=== PATIENT | male | born 1935 | race Caucasian/White ===

== ENCOUNTER 2020-04-21 11:58 | Outpatient (CLI) | payer MEDICARE ==
--- NOTE | 2020-04-21 13:23 | RAD ---
PA AND LATERAL VIEWS CHEST: Date: 04/21/2020 HISTORY: Dyspnea. FINDINGS/IMPRESSION: There are no previous exams for comparison. The heart size is borderline. The aorta is tortuous. A left-sided pacemaker device is present. Diffus e interstitial thickening is seen in the lung marquez bilaterally, which is likely chronic. This, zamarripa kylah, cannot be said with certainty in the absence of comparison exams. No pneumothoraces, lobar conso lidation, or pleural effusions are seen. There are degenerative changes in the spine. POS: OFF
== END 2020-04-21 11:59 | disposition home or self-care (01) ==
LOC: BICRAD 11:58
PROVIDERS: ATTEND Internal Medicine Pulmonary Disease
DX: R06.00 Dyspnea, unspecified (principal); J98.4 Other disorders of lung; Z95.0 Presence of cardiac pacemaker
CPT/HCPCS: 71046

== ENCOUNTER 2021-04-13 13:48 | Inpatient (IN) | payer MEDICARE ==
[2021-04-13 16:14] LABS: SARS-CoV-2 NAA Rapid Test DETECTED (NotDetected)
[2021-04-13] MEDS ORDERED: Albuterol Sulfate 2.5 mg/3 ml Neb NEB PRN (17:05)
[2021-04-13] MEDS ORDERED: Senokot S 8.6-50 MG TAB PO PRN (17:05)
[2021-04-13 17:32] LABS: Lactic Acid 2.3 mmol/L (0.5-2.2)
[2021-04-13 17:56] LABS: Actual Bicarbonate (HCO3a) 19.3 mEq/L (22-28); Analyzer IN Cardio ER; Base Excess (BEa) -4.9 mEq/L (-2.0 to +3.0); CO2 Tension 33.5 mmHg (35.0-45.0); Calcium, Ionized (arterial) 1.07 mmol/L (1.12-1.30); Carboxyhemoglobin (COHb) 0.6 gm% (0.0-3.0); Hemoglobin (Hb) 13.6 g/dL (14.0-18.0); O2 Tension (PaO2), arterial 95.7 mmHg (> 60.0); Potassium - ABG Lab 4.18 mmol/L (3.70-5.30); pH, Arterial 7.38 (7.35-7.45)
[2021-04-13 17:58] LABS: Puncture Site RBA
[2021-04-13] MEDS ORDERED: predniSONE 20 MG TAB PO SCH (18:00)
[2021-04-13] MEDS ORDERED: Ipratropium Oral Inhaler INH SCH (19:00)
[2021-04-13] MEDS ORDERED: Mometasone 100 MCG/Formoterol 5 MCG 120 PUFF INHALER INH SCH (21:00)
[2021-04-13] MEDS ORDERED: Rivaroxaban 15 MG TAB PO SCH (21:00)
[2021-04-13] MEDS: Gabapentin 100 MG CAP PO SCH ×2 (22:00→22:07)
[2021-04-13] MEDS: traZODone HCl 50 MG TAB PO SCH (22:01)
[2021-04-13] MEDS: Albuterol 200 PUFF (6.7GM INHALER) INH SCH (22:01)
[2021-04-13] MEDS: Benzonatate 100 MG CAP PO PRN (22:01)
[2021-04-14 04:02] LABS: #Lymphocytes 0.8 thou/uL (1.20-3.40); #Monocytes 0.7 thou/uL (0.11-0.59); %Eosinophils 0.1 % (0.0-10.0); %Lymphocytes 9.8 % (21.0-51.0); %Monocytes 7.6 % (0.0-10.0); %Neutrophils 82.5 % (42.0-75.0); Hemoglobin 12.4 g/dL (14.0-18.0); Mean Corpuscular HGB CONC 33.6 g/dL (32.0-36.0); Mean Corpuscular Hemoglobin 32.4 pg (27.0-31.0); Mean Corpuscular Volume 96.5 fL (78.0-98.0); Mean Platelet Volume 8.8 fL (7.4-10.4); Platelet Count 92 thou/uL (130-400); Platelet Morphology Comment Appears Decreased; Red Blood Cell (RBC) Count 3.84 mill/uL (4.70-6.10); White Blood Cell (WBC) Count 8.5 thou/uL (4.8-10.8)
[2021-04-14 04:04] LABS: ALT (SGPT) 26 U/L (8-55); AST (SGOT) 51 U/L (5-34); Alkaline Phosphatase 76 U/L (40-110); Anion Gap 11 mmol/L (10-20); BUN (Urea Nitrogen) 32 mg/dL (8.4-25.7); Bilirubin, Total 0.5 mg/dL (0.2-1.2); Calc. Creatinine Clearance 54 mL/min (70-130); Carbon Dioxide 24 mmol/L (23-31); Chloride 104 mmol/L (98-107); Globulin 2.9 g/dL (2.4-3.5); Glucose 131 mg/dL (83-110); Potassium 4.1 mmol/L (3.5-5.1); Protein, Total 5.9 g/dL (5.8-8.1); Sodium 135 mmol/L (136-145)
[2021-04-14] MEDS: Levothyroxine Sodium 88 MCG TAB PO SCH (05:15)
[2021-04-14] MEDS: Albuterol 200 PUFF (6.7GM INHALER) INH SCH ×6 (06:42→21:11)
[2021-04-14] MEDS ORDERED: predniSONE 20 MG TAB PO SCH (08:00)
[2021-04-14] MEDS ORDERED: Enoxaparin Sodium 30 MG/0.3 ML SYRINGE SC SCH (09:00)
[2021-04-14] MEDS ORDERED: Furosemide 40 MG TAB PO SCH (09:00)
[2021-04-14] MEDS ORDERED: Non-Formulary Item 1 EACH (Fluticasone Propionate [Flovent Diskus] 50 MCG Blst.W.Dev) INH SCH (09:00)
[2021-04-14] MEDS ORDERED: Ipratropium Oral Inhaler INH PRN (09:34)
[2021-04-14] MEDS ORDERED: Rivaroxaban 15 MG TAB PO SCH (09:43)
[2021-04-14] MEDS: Dexamethasone 10 MG/ML VIAL SLOW IVP SCH ×2 (10:42→20:44)
[2021-04-14] MEDS: Azithromycin 250 MG TAB PO SCH (10:43)
[2021-04-14] MEDS: Metoprolol Tartrate 25 MG TAB PO SCH ×2 (10:43→20:45)
[2021-04-14] MEDS: Potassium Bicarbonate/Cit Ac 20 MEQ TAB PO SCH (10:44)
[2021-04-14] MEDS: Furosemide 20 MG/2 ML VIAL SLOW IVP SCH ×2 (10:44→20:44)
[2021-04-14] MEDS: Gabapentin 100 MG CAP PO SCH (12:18)
[2021-04-14] MEDS: Mometasone 200 MCG/PUFF (1 INHALER) INH SCH ×3 (16:05→17:54)
[2021-04-14] MEDS: Mometasone 100 MCG/Formoterol 5 MCG 120 PUFF INHALER INH SCH ×2 (16:05→17:46)
[2021-04-14] MEDS: cefTRIAXone\\ROCEPHIN 1 GM in Sodium Chloride 0.9% 100 ML IVPB SCH (16:35)
[2021-04-14] MEDS: Rivaroxaban 10 MG TAB PO SCH (20:45)
[2021-04-14] MEDS: traZODone HCl 50 MG TAB PO SCH (20:46)
[2021-04-14] MEDS ORDERED: Metoprolol Tartrate 25 MG TAB PO SCH (21:45)
[2021-04-15] MEDS: Levothyroxine Sodium 88 MCG TAB PO SCH (05:58)
[2021-04-15] MEDS: Albuterol 200 PUFF (6.7GM INHALER) INH SCH ×6 (05:59→22:00)
[2021-04-15] MEDS ORDERED: Metoprolol Tartrate 25 MG TAB PO SCH (07:15)
[2021-04-15 08:44] LABS: Hemoglobin 14.7 g/dL (14.0-18.0); Mean Corpuscular HGB CONC 30.7 g/dL (32.0-36.0); Mean Corpuscular Hemoglobin 30.8 pg (27.0-31.0); Mean Platelet Volume 9.7 fL (7.4-10.4); Platelet Count 127 thou/uL (130-400); RBC Distribution Width 14.4 % (11.5-14.5); Red Blood Cell (RBC) Count 4.77 mill/uL (4.70-6.10); White Blood Cell (WBC) Count 8.9 thou/uL (4.8-10.8)
[2021-04-15 08:46] LABS: ALT (SGPT) 72 U/L (8-55); AST (SGOT) 132 U/L (5-34); Albumin 3.3 g/dL (3.4-4.8); Alkaline Phosphatase 113 U/L (40-110); Anion Gap 16 mmol/L (10-20); BUN (Urea Nitrogen) 39 mg/dL (8.4-25.7); Bilirubin, Total 0.5 mg/dL (0.2-1.2); Calc. Creatinine Clearance 64 mL/min (70-130); Calcium 8.4 mg/dL (7.8-10.44); Carbon Dioxide 18 mmol/L (23-31); Chloride 103 mmol/L (98-107); Globulin 3.7 g/dL (2.4-3.5); Glucose 126 mg/dL (83-110); Potassium 4.6 mmol/L (3.5-5.1); Sodium 132 mmol/L (136-145)
[2021-04-15] MEDS: Mometasone 200 MCG/PUFF (1 INHALER) INH SCH ×2 (09:02→18:18)
[2021-04-15] MEDS: Mometasone 100 MCG/Formoterol 5 MCG 120 PUFF INHALER INH SCH ×2 (09:03→18:18)
[2021-04-15 09:04] LABS: Magnesium 2.3 mg/dL (1.6-2.6); Phosphorus 2.8 mg/dL (2.3-4.7)
[2021-04-15] MEDS: Dexamethasone 10 MG/ML VIAL SLOW IVP SCH ×2 (09:05→21:38)
[2021-04-15] MEDS: Azithromycin 250 MG TAB PO SCH (09:05)
[2021-04-15] MEDS: Furosemide 20 MG/2 ML VIAL SLOW IVP SCH ×2 (09:05→21:38)
[2021-04-15] MEDS: Potassium Bicarbonate/Cit Ac 20 MEQ TAB PO SCH (09:06)
[2021-04-15] MEDS: Metoprolol Tartrate 25 MG TAB PO SCH ×3 (09:27→21:37)
[2021-04-15] MEDS ORDERED: Iopamidol-370 76% 500 ML 1 ML ONE (09:28)
[2021-04-15 10:42] LABS: Band 28 % (5-11); Lymphocytes 13 % (21-51); MDiff Complete? YES; Monocytes 9 % (0-10); Neutrophil 50 % (42-75); Platelet Morphology Comment Appears Decreased; Polychromasia SLIGHT = 2-3 cells (100X) (0-2/hpf)
[2021-04-15] MEDS: cefTRIAXone\\ROCEPHIN 1 GM in Sodium Chloride 0.9% 100 ML IVPB SCH (14:40)
[2021-04-15] MEDS: Rivaroxaban 10 MG TAB PO SCH (21:37)
[2021-04-15] MEDS: traZODone HCl 50 MG TAB PO SCH (21:38)
[2021-04-16] MEDS: Albuterol 200 PUFF (6.7GM INHALER) INH SCH ×6 (02:30→21:49)
[2021-04-16 04:00] LABS: #Lymphocytes 0.6 thou/uL (1.20-3.40); #Monocytes 0.3 thou/uL (0.11-0.59); #Neutrophils 4.9 thou/uL (1.40-6.50); %Monocytes 5.7 % (0.0-10.0); %Neutrophils 84.2 % (42.0-75.0); Hemoglobin 13.9 g/dL (14.0-18.0); Mean Corpuscular HGB CONC 31.4 g/dL (32.0-36.0); Mean Corpuscular Hemoglobin 30.5 pg (27.0-31.0); Mean Platelet Volume 8.8 fL (7.4-10.4); Platelet Count 124 thou/uL (130-400); RBC Distribution Width 13.9 % (11.5-14.5); Red Blood Cell (RBC) Count 4.54 mill/uL (4.70-6.10); White Blood Cell (WBC) Count 5.8 thou/uL (4.8-10.8)
[2021-04-16 04:28] LABS: ALT (SGPT) 70 U/L (8-55); AST (SGOT) 87 U/L (5-34); Albumin 3.2 g/dL (3.4-4.8); Alkaline Phosphatase 121 U/L (40-110); Anion Gap 12 mmol/L (10-20); BUN (Urea Nitrogen) 40 mg/dL (8.4-25.7); Bilirubin, Total 0.4 mg/dL (0.2-1.2); Calc. Creatinine Clearance 68 mL/min (70-130); Calcium 8.2 mg/dL (7.8-10.44); Carbon Dioxide 28 mmol/L (23-31); Chloride 99 mmol/L (98-107); Globulin 3.2 g/dL (2.4-3.5); Glucose 131 mg/dL (83-110); Potassium 3.9 mmol/L (3.5-5.1); Protein, Total 6.4 g/dL (5.8-8.1); Sodium 135 mmol/L (136-145)
[2021-04-16] MEDS: Levothyroxine Sodium 88 MCG TAB PO SCH (06:23)
[2021-04-16] MEDS ORDERED: Calcium Carbonate 500 MG ChewTAB PO PRN (09:34)
[2021-04-16] MEDS: Dexamethasone 10 MG/ML VIAL SLOW IVP SCH ×2 (10:17→20:22)
[2021-04-16] MEDS: Furosemide 20 MG/2 ML VIAL SLOW IVP SCH ×2 (10:17→20:22)
[2021-04-16] MEDS: Acetaminophen 325 MG TAB PO PRN ×3 (10:17→21:41)
[2021-04-16] MEDS: Benzonatate 100 MG CAP PO PRN (10:18)
[2021-04-16] MEDS: Azithromycin 250 MG TAB PO SCH (10:18)
[2021-04-16] MEDS: Metoprolol Tartrate 25 MG TAB PO SCH ×2 (10:18→20:22)
[2021-04-16] MEDS: Potassium Bicarbonate/Cit Ac 20 MEQ TAB PO SCH (10:18)
[2021-04-16] MEDS: Mometasone 100 MCG/Formoterol 5 MCG 120 PUFF INHALER INH SCH ×2 (10:32→18:48)
[2021-04-16] MEDS: Mometasone 200 MCG/PUFF (1 INHALER) INH SCH ×2 (10:33→18:49)
[2021-04-16] MEDS: guaiFENesin/DM ER PO SCH ×2 (10:43→20:21)
[2021-04-16] MEDS: Pantoprazole 40 MG VIAL IVP SCH (10:44)
[2021-04-16] MEDS: cefTRIAXone\\ROCEPHIN 1 GM in Sodium Chloride 0.9% 100 ML IVPB SCH (16:49)
[2021-04-16] MEDS: Rivaroxaban 10 MG TAB PO SCH (20:22)
[2021-04-16] MEDS: traZODone HCl 50 MG TAB PO SCH (20:22)
[2021-04-17] MEDS: Albuterol 200 PUFF (6.7GM INHALER) INH SCH ×6 (03:00→23:25)
[2021-04-17 03:53] LABS: #Lymphocytes 0.6 thou/uL (1.20-3.40); #Monocytes 0.4 thou/uL (0.11-0.59); #Neutrophils 5.5 thou/uL (1.40-6.50); %Basophils 0.2 % (0.0-1.0); %Eosinophils 0.1 % (0.0-10.0); %Lymphocytes 9.8 % (21.0-51.0); %Monocytes 5.7 % (0.0-10.0); %Neutrophils 84.2 % (42.0-75.0); Hemoglobin 13.4 g/dL (14.0-18.0); Mean Corpuscular HGB CONC 31.6 g/dL (32.0-36.0); Mean Corpuscular Hemoglobin 31.1 pg (27.0-31.0); Mean Corpuscular Volume 98.5 fL (78.0-98.0); Mean Platelet Volume 9.2 fL (7.4-10.4); Platelet Count 117 thou/uL (130-400); White Blood Cell (WBC) Count 6.5 thou/uL (4.8-10.8)
[2021-04-17 04:15] LABS: ALT (SGPT) 71 U/L (8-55); AST (SGOT) 67 U/L (5-34); Alkaline Phosphatase 113 U/L (40-110); Anion Gap 13 mmol/L (10-20); BUN (Urea Nitrogen) 32 mg/dL (8.4-25.7); Bilirubin, Total 0.4 mg/dL (0.2-1.2); Calc. Creatinine Clearance 73 mL/min (70-130); Calcium 7.9 mg/dL (7.8-10.44); Carbon Dioxide 28 mmol/L (23-31); Chloride 100 mmol/L (98-107); Glucose 136 mg/dL (83-110); Potassium 3.5 mmol/L (3.5-5.1); Sodium 137 mmol/L (136-145)
[2021-04-17] MEDS: Mometasone 100 MCG/Formoterol 5 MCG 120 PUFF INHALER INH SCH ×2 (06:03→18:11)
[2021-04-17] MEDS: Mometasone 200 MCG/PUFF (1 INHALER) INH SCH ×2 (06:04→18:12)
[2021-04-17] MEDS: Levothyroxine Sodium 88 MCG TAB PO SCH (06:05)
[2021-04-17] MEDS: Furosemide 20 MG/2 ML VIAL SLOW IVP SCH ×2 (09:47→20:36)
[2021-04-17] MEDS: Potassium Bicarbonate/Cit Ac 20 MEQ TAB PO SCH (09:47)
[2021-04-17] MEDS: Dexamethasone 10 MG/ML VIAL SLOW IVP SCH ×2 (09:47→20:36)
[2021-04-17] MEDS: Azithromycin 250 MG TAB PO SCH (09:48)
[2021-04-17] MEDS: Benzonatate 100 MG CAP PO PRN (09:48)
[2021-04-17] MEDS: Metoprolol Tartrate 25 MG TAB PO SCH ×2 (09:48→20:36)
[2021-04-17] MEDS: guaiFENesin/DM ER PO SCH ×2 (09:48→20:36)
[2021-04-17] MEDS: Pantoprazole 40 MG VIAL IVP SCH (09:49)
[2021-04-17] MEDS: cefTRIAXone\\ROCEPHIN 1 GM in Sodium Chloride 0.9% 100 ML IVPB SCH (14:54)
[2021-04-17] MEDS: traZODone HCl 50 MG TAB PO SCH (20:36)
[2021-04-17] MEDS: Rivaroxaban 10 MG TAB PO SCH (20:36)
[2021-04-18] MEDS: Albuterol 200 PUFF (6.7GM INHALER) INH SCH ×6 (03:25→22:54)
[2021-04-18 04:28] LABS: ALT (SGPT) 95 U/L (8-55); AST (SGOT) 68 U/L (5-34); Albumin 3.2 g/dL (3.4-4.8); Alkaline Phosphatase 112 U/L (40-110); Anion Gap 14 mmol/L (10-20); BUN (Urea Nitrogen) 35 mg/dL (8.4-25.7); Bilirubin, Total 0.5 mg/dL (0.2-1.2); Calc. Creatinine Clearance 69 mL/min (70-130); Carbon Dioxide 30 mmol/L (23-31); Chloride 99 mmol/L (98-107); Globulin 3.1 g/dL (2.4-3.5); Glucose 153 mg/dL (83-110); Potassium 3.7 mmol/L (3.5-5.1); Protein, Total 6.3 g/dL (5.8-8.1); Sodium 139 mmol/L (136-145)
[2021-04-18 06:16] LABS: Hemoglobin 15.2 g/dL (14.0-18.0); Mean Corpuscular HGB CONC 31.7 g/dL (32.0-36.0); Mean Corpuscular Hemoglobin 30.2 pg (27.0-31.0); Mean Corpuscular Volume 95.4 fL (78.0-98.0); Platelet Count 142 thou/uL (130-400); RBC Distribution Width 14.1 % (11.5-14.5); Red Blood Cell (RBC) Count 5.03 mill/uL (4.70-6.10); White Blood Cell (WBC) Count 7.7 thou/uL (4.8-10.8)
[2021-04-18] MEDS: Levothyroxine Sodium 88 MCG TAB PO SCH (06:31)
[2021-04-18] MEDS: Mometasone 100 MCG/Formoterol 5 MCG 120 PUFF INHALER INH SCH ×2 (06:33→18:57)
[2021-04-18 06:43] LABS: Band 12 % (5-11); Lymphocytes 12 % (21-51); MDiff Complete? YES; Monocytes 6 % (0-10); Neutrophil 70 % (42-75)
[2021-04-18] MEDS: Mometasone 200 MCG/PUFF (1 INHALER) INH SCH ×2 (06:58→18:57)
[2021-04-18] MEDS: Metoprolol Tartrate 25 MG TAB PO SCH ×2 (08:26→20:54)
[2021-04-18] MEDS: Dexamethasone 10 MG/ML VIAL SLOW IVP SCH (08:26)
[2021-04-18] MEDS: Pantoprazole 40 MG VIAL IVP SCH (08:26)
[2021-04-18] MEDS: guaiFENesin/DM ER PO SCH ×2 (08:26→20:54)
[2021-04-18] MEDS: Furosemide 20 MG/2 ML VIAL SLOW IVP SCH ×2 (08:26→20:54)
[2021-04-18] MEDS: Potassium Bicarbonate/Cit Ac 20 MEQ TAB PO SCH (08:27)
[2021-04-18 12:14] LABS: Cardiac Risk 3.2 (Less than 4.5)
[2021-04-18 12:34] LABS: HBCM Index 0.07 S/CO (0-0.79); HBSAg Index 0.24 S/CO (0-0.99); Hep A IgM AB Non-Reactive (NonReactive); Hep A IgM S/CO 0.09 S/CO (0-0.79); Hep B Surf Ag Non-Reactive S/CO (NonReactive); Hep C IgG Ab Non-Reactive (NonReactive); Hep C Index 0.17 S/CO (0-0.79); Hepatitis B Core IgM Abs Non-Reactive (NonReactive)
[2021-04-18] MEDS: cefTRIAXone\\ROCEPHIN 1 GM in Sodium Chloride 0.9% 100 ML IVPB SCH (15:40)
[2021-04-18] MEDS: Rivaroxaban 10 MG TAB PO SCH (20:54)
[2021-04-18] MEDS: traZODone HCl 50 MG TAB PO SCH (20:54)
[2021-04-19] MEDS: Albuterol 200 PUFF (6.7GM INHALER) INH SCH ×6 (03:02→23:14)
[2021-04-19 05:58] LABS: ALT (SGPT) 83 U/L (8-55); AST (SGOT) 47 U/L (5-34); Albumin 3.3 g/dL (3.4-4.8); Alkaline Phosphatase 114 U/L (40-110); Anion Gap 16 mmol/L (10-20); BUN (Urea Nitrogen) 36 mg/dL (8.4-25.7); Bilirubin, Total 0.7 mg/dL (0.2-1.2); Calc. Creatinine Clearance 73 mL/min (70-130); Calcium 7.7 mg/dL (7.8-10.44); Carbon Dioxide 26 mmol/L (23-31); Chloride 97 mmol/L (98-107); Glucose 123 mg/dL (83-110); Potassium 3.8 mmol/L (3.5-5.1); Protein, Total 6.3 g/dL (5.8-8.1); Sodium 135 mmol/L (136-145)
[2021-04-19 05:59] LABS: Hemoglobin 14.8 g/dL (14.0-18.0); Mean Corpuscular HGB CONC 31.7 g/dL (32.0-36.0); Mean Corpuscular Hemoglobin 29.9 pg (27.0-31.0); Mean Corpuscular Volume 94.3 fL (78.0-98.0); Mean Platelet Volume 8.7 fL (7.4-10.4); Platelet Count 158 thou/uL (130-400); RBC Distribution Width 13.9 % (11.5-14.5); Red Blood Cell (RBC) Count 4.93 mill/uL (4.70-6.10); White Blood Cell (WBC) Count 8.2 thou/uL (4.8-10.8)
[2021-04-19 06:17] LABS: Band 10 % (5-11); Lymphocytes 2 % (21-51); MDiff Complete? YES; Monocytes 7 % (0-10); Myelocyte 2 % (0-0); Neutrophil 79 % (42-75)
[2021-04-19] MEDS: Levothyroxine Sodium 88 MCG TAB PO SCH (06:20)
[2021-04-19] MEDS: Mometasone 200 MCG/PUFF (1 INHALER) INH SCH ×2 (06:22→17:46)
[2021-04-19] MEDS: Mometasone 100 MCG/Formoterol 5 MCG 120 PUFF INHALER INH SCH ×2 (06:22→17:46)
[2021-04-19] MEDS: Dexamethasone 10 MG/ML VIAL SLOW IVP SCH (09:00)
[2021-04-19] MEDS: Metoprolol Tartrate 25 MG TAB PO SCH ×2 (09:00→19:59)
[2021-04-19] MEDS: Furosemide 20 MG/2 ML VIAL SLOW IVP SCH ×2 (09:00→19:59)
[2021-04-19] MEDS: Potassium Bicarbonate/Cit Ac 20 MEQ TAB PO SCH (09:01)
[2021-04-19] MEDS: guaiFENesin/DM ER PO SCH ×2 (09:01→19:59)
[2021-04-19] MEDS: Rivaroxaban 10 MG TAB PO SCH (19:59)
[2021-04-19] MEDS: traZODone HCl 50 MG TAB PO SCH (19:59)
[2021-04-20] MEDS: Albuterol 200 PUFF (6.7GM INHALER) INH SCH ×6 (02:58→22:52)
[2021-04-20 05:42] LABS: ALT (SGPT) 73 U/L (8-55); AST (SGOT) 38 U/L (5-34); Albumin 3.3 g/dL (3.4-4.8); Alkaline Phosphatase 115 U/L (40-110); Anion Gap 15 mmol/L (10-20); BUN (Urea Nitrogen) 32 mg/dL (8.4-25.7); Bilirubin, Total 0.9 mg/dL (0.2-1.2); Calc. Creatinine Clearance 72 mL/min (70-130); Calcium 8.1 mg/dL (7.8-10.44); Carbon Dioxide 30 mmol/L (23-31); Chloride 96 mmol/L (98-107); Globulin 3.2 g/dL (2.4-3.5); Glucose 105 mg/dL (83-110); Potassium 4.2 mmol/L (3.5-5.1); Protein, Total 6.5 g/dL (5.8-8.1); Sodium 137 mmol/L (136-145)
[2021-04-20] MEDS: Levothyroxine Sodium 88 MCG TAB PO SCH (05:59)
[2021-04-20] MEDS: Mometasone 100 MCG/Formoterol 5 MCG 120 PUFF INHALER INH SCH ×2 (06:01→17:45)
[2021-04-20] MEDS: Mometasone 200 MCG/PUFF (1 INHALER) INH SCH ×2 (06:02→17:45)
[2021-04-20 07:01] LABS: Band 11 % (5-11); Hemoglobin 15.5 g/dL (14.0-18.0); Lymphocytes 11 % (21-51); MDiff Complete? YES; Mean Corpuscular HGB CONC 31.9 g/dL (32.0-36.0); Mean Corpuscular Hemoglobin 30.6 pg (27.0-31.0); Mean Corpuscular Volume 95.9 fL (78.0-98.0); Mean Platelet Volume 8.3 fL (7.4-10.4); Monocytes 2 % (0-10); Neutrophil 76 % (42-75); Platelet Count 192 thou/uL (130-400); Red Blood Cell (RBC) Count 5.07 mill/uL (4.70-6.10); White Blood Cell (WBC) Count 8.5 thou/uL (4.8-10.8)
[2021-04-20] MEDS: Potassium Bicarbonate/Cit Ac 20 MEQ TAB PO SCH (08:10)
[2021-04-20] MEDS: Dexamethasone 10 MG/ML VIAL SLOW IVP SCH (08:10)
[2021-04-20] MEDS: guaiFENesin/DM ER PO SCH ×2 (08:11→20:02)
[2021-04-20] MEDS: Metoprolol Tartrate 25 MG TAB PO SCH ×2 (08:11→20:02)
[2021-04-20] MEDS: Furosemide 20 MG/2 ML VIAL SLOW IVP SCH ×2 (08:11→20:01)
[2021-04-20] MEDS: Rivaroxaban 10 MG TAB PO SCH ×2 (20:01→20:02)
[2021-04-20] MEDS: traZODone HCl 50 MG TAB PO SCH (20:02)
[2021-04-21] MEDS: Albuterol 200 PUFF (6.7GM INHALER) INH SCH ×6 (02:30→23:07)
[2021-04-21] MEDS: Levothyroxine Sodium 88 MCG TAB PO SCH (05:23)
[2021-04-21] MEDS: Mometasone 200 MCG/PUFF (1 INHALER) INH SCH ×2 (05:24→18:13)
[2021-04-21] MEDS: Mometasone 100 MCG/Formoterol 5 MCG 120 PUFF INHALER INH SCH ×2 (05:24→18:13)
[2021-04-21 06:26] LABS: ALT (SGPT) 64 U/L (8-55); AST (SGOT) 39 U/L (5-34); Albumin 3.2 g/dL (3.4-4.8); Alkaline Phosphatase 126 U/L (40-110); Anion Gap 16 mmol/L (10-20); BUN (Urea Nitrogen) 35 mg/dL (8.4-25.7); Bilirubin, Total 0.9 mg/dL (0.2-1.2); Calc. Creatinine Clearance 73 mL/min (70-130); Calcium 8.4 mg/dL (7.8-10.44); Carbon Dioxide 30 mmol/L (23-31); Chloride 96 mmol/L (98-107); Globulin 3.6 g/dL (2.4-3.5); Glucose 106 mg/dL (83-110); Potassium 4.7 mmol/L (3.5-5.1); Protein, Total 6.8 g/dL (5.8-8.1); Sodium 137 mmol/L (136-145)
[2021-04-21 06:27] LABS: #Eosinphils 0.1 thou/uL (0.0-0.7); #Lymphocytes 0.6 thou/uL (1.20-3.40); #Monocytes 0.9 thou/uL (0.11-0.59); #Neutrophils 10.6 thou/uL (1.40-6.50); %Eosinophils 0.6 % (0.0-10.0); %Lymphocytes 5.2 % (21.0-51.0); %Neutrophils 87.3 % (42.0-75.0); Hemoglobin 15.7 g/dL (14.0-18.0); Mean Corpuscular HGB CONC 32.4 g/dL (32.0-36.0); Mean Corpuscular Hemoglobin 30.8 pg (27.0-31.0); Mean Corpuscular Volume 95.1 fL (78.0-98.0); Mean Platelet Volume 8.2 fL (7.4-10.4); Platelet Count 197 thou/uL (130-400); RBC Distribution Width 14.2 % (11.5-14.5); Red Blood Cell (RBC) Count 5.09 mill/uL (4.70-6.10); White Blood Cell (WBC) Count 12.2 thou/uL (4.8-10.8)
[2021-04-21] MEDS: Dexamethasone 10 MG/ML VIAL SLOW IVP SCH (07:32)
[2021-04-21] MEDS: Furosemide 20 MG/2 ML VIAL SLOW IVP SCH ×2 (07:32→20:15)
[2021-04-21] MEDS: Metoprolol Tartrate 25 MG TAB PO SCH (07:33)
[2021-04-21] MEDS: Potassium Bicarbonate/Cit Ac 20 MEQ TAB PO SCH (07:33)
[2021-04-21] MEDS: guaiFENesin/DM ER PO SCH ×2 (07:33→20:16)
[2021-04-21] MEDS ORDERED: Albuterol 200 PUFF (6.7GM INHALER) INH SCH (09:15)
[2021-04-21] MEDS ORDERED: Metoprolol Tartrate 25 MG TAB PO SCH ×2 (09:30)
[2021-04-21 10:53] VITALS: BMI 27.6
[2021-04-21] MEDS: Ipratropium Oral Inhaler INH SCH ×4 (14:12→20:17)
[2021-04-21] MEDS: Acetaminophen 325 MG TAB PO PRN (20:15)
[2021-04-21] MEDS: Rivaroxaban 10 MG TAB PO SCH (20:15)
[2021-04-21] MEDS: traZODone HCl 50 MG TAB PO SCH (20:16)
[2021-04-21] MEDS: Metoprolol Tartrate 50 MG TAB PO SCH (20:16)
[2021-04-22] MEDS: Albuterol 200 PUFF (6.7GM INHALER) INH SCH ×6 (03:32→23:50)
[2021-04-22] MEDS: Levothyroxine Sodium 88 MCG TAB PO SCH (05:16)
[2021-04-22] MEDS: Ipratropium Oral Inhaler INH SCH ×4 (05:22→17:58)
[2021-04-22] MEDS: Mometasone 200 MCG/PUFF (1 INHALER) INH SCH ×2 (05:23→18:00)
[2021-04-22] MEDS: Mometasone 100 MCG/Formoterol 5 MCG 120 PUFF INHALER INH SCH ×2 (05:24→17:59)
[2021-04-22 05:41] LABS: #Lymphocytes 0.5 thou/uL (1.20-3.40); #Monocytes 0.7 thou/uL (0.11-0.59); #Neutrophils 10.2 thou/uL (1.40-6.50); %Basophils 0.2 % (0.0-1.0); %Eosinophils 0.1 % (0.0-10.0); %Lymphocytes 3.9 % (21.0-51.0); %Monocytes 5.8 % (0.0-10.0); Hemoglobin 15.6 g/dL (14.0-18.0); Mean Corpuscular HGB CONC 31.7 g/dL (32.0-36.0); Mean Corpuscular Hemoglobin 30.1 pg (27.0-31.0); Platelet Count 181 thou/uL (130-400); Red Blood Cell (RBC) Count 5.19 mill/uL (4.70-6.10); White Blood Cell (WBC) Count 11.3 thou/uL (4.8-10.8)
[2021-04-22 06:21] LABS: ALT (SGPT) 55 U/L (8-55); AST (SGOT) 28 U/L (5-34); Albumin 2.9 g/dL (3.4-4.8); Alkaline Phosphatase 117 U/L (40-110); Anion Gap 18 mmol/L (10-20); BUN (Urea Nitrogen) 33 mg/dL (8.4-25.7); Bilirubin, Total 0.9 mg/dL (0.2-1.2); Calc. Creatinine Clearance 76 mL/min (70-130); Calcium 8.5 mg/dL (7.8-10.44); Carbon Dioxide 26 mmol/L (23-31); Chloride 96 mmol/L (98-107); Globulin 3.3 g/dL (2.4-3.5); Glucose 97 mg/dL (83-110); Potassium 4.2 mmol/L (3.5-5.1); Protein, Total 6.2 g/dL (5.8-8.1); Sodium 136 mmol/L (136-145)
[2021-04-22] MEDS: Metoprolol Tartrate 50 MG TAB PO SCH ×2 (08:20→20:42)
[2021-04-22] MEDS: Dexamethasone 10 MG/ML VIAL SLOW IVP SCH ×2 (08:20→20:41)
[2021-04-22] MEDS: Potassium Bicarbonate/Cit Ac 20 MEQ TAB PO SCH (08:20)
[2021-04-22] MEDS: Furosemide 20 MG/2 ML VIAL SLOW IVP SCH ×2 (08:20→20:41)
[2021-04-22] MEDS: guaiFENesin/DM ER PO SCH ×2 (08:20→20:41)
[2021-04-22] MEDS ORDERED: Furosemide 20 MG/2 ML VIAL SLOW IVP SCH (11:30)
[2021-04-22] MEDS ORDERED: Iopamidol-370 76% 500 ML 1 ML ONE (11:52)
[2021-04-22] MEDS: Rivaroxaban 10 MG TAB PO SCH (20:42)
[2021-04-22] MEDS: traZODone HCl 50 MG TAB PO SCH (20:42)
[2021-04-23] MEDS: Albuterol 200 PUFF (6.7GM INHALER) INH SCH ×6 (03:26→23:18)
[2021-04-23 04:49] LABS: #Basophils 0.1 thou/uL (0.0-0.2); #Lymphocytes 0.4 thou/uL (1.20-3.40); #Monocytes 0.4 thou/uL (0.11-0.59); #Neutrophils 8.6 thou/uL (1.40-6.50); %Eosinophils 0.2 % (0.0-10.0); %Lymphocytes 3.9 % (21.0-51.0); %Monocytes 3.7 % (0.0-10.0); %Neutrophils 91.3 % (42.0-75.0); Hemoglobin 14.7 g/dL (14.0-18.0); Mean Corpuscular HGB CONC 32.2 g/dL (32.0-36.0); Mean Corpuscular Hemoglobin 30.9 pg (27.0-31.0); Mean Corpuscular Volume 95.8 fL (78.0-98.0); Mean Platelet Volume 8.2 fL (7.4-10.4); Platelet Count 236 thou/uL (130-400); Red Blood Cell (RBC) Count 4.77 mill/uL (4.70-6.10); White Blood Cell (WBC) Count 9.5 thou/uL (4.8-10.8)
[2021-04-23 05:13] LABS: ALT (SGPT) 57 U/L (8-55); AST (SGOT) 32 U/L (5-34); Alkaline Phosphatase 158 U/L (40-110); Anion Gap 14 mmol/L (10-20); BUN (Urea Nitrogen) 35 mg/dL (8.4-25.7); Bilirubin, Total 0.9 mg/dL (0.2-1.2); Calc. Creatinine Clearance 66 mL/min (70-130); Calcium 8.8 mg/dL (7.8-10.44); Carbon Dioxide 32 mmol/L (23-31); Chloride 94 mmol/L (98-107); Globulin 3.4 g/dL (2.4-3.5); Glucose 121 mg/dL (83-110); Potassium 4.3 mmol/L (3.5-5.1); Protein, Total 6.4 g/dL (5.8-8.1); Sodium 136 mmol/L (136-145)
[2021-04-23] MEDS: Levothyroxine Sodium 88 MCG TAB PO SCH (06:06)
[2021-04-23] MEDS: Mometasone 100 MCG/Formoterol 5 MCG 120 PUFF INHALER INH SCH ×2 (06:10→18:16)
[2021-04-23] MEDS: Ipratropium Oral Inhaler INH SCH ×4 (06:11→18:16)
[2021-04-23] MEDS: Mometasone 200 MCG/PUFF (1 INHALER) INH SCH ×2 (06:13→18:15)
[2021-04-23] MEDS ORDERED: Furosemide 40 MG/4 ML VIAL SLOW IVP SCH (08:15)
[2021-04-23] MEDS: Furosemide 20 MG/2 ML VIAL SLOW IVP SCH ×2 (09:26→21:34)
[2021-04-23] MEDS: Potassium Bicarbonate/Cit Ac 20 MEQ TAB PO SCH (09:28)
[2021-04-23] MEDS: Metoprolol Tartrate 50 MG TAB PO SCH ×2 (09:28→21:35)
[2021-04-23] MEDS: Dexamethasone 10 MG/ML VIAL SLOW IVP SCH ×2 (09:28→21:34)
[2021-04-23] MEDS: guaiFENesin/DM ER PO SCH ×2 (11:33→21:34)
[2021-04-23 16:23] LABS: Base Excess 6.9 mEq/L (-2.0 to +3.0); Calcium, Ionized (venous) 1.05 mmol/L (1.16-1.32); Chloride (VBG) 94 mmol/L (98-106); Potassium (VBG) 4.27 mmol/L (3.70-5.30); Sodium 134.3 mmol/L (133-146)
[2021-04-23 16:25] LABS: Actual Bicarbonate (HCO3v) 31 mEq/L (22-28)
[2021-04-23] MEDS: traZODone HCl 50 MG TAB PO SCH (21:35)
[2021-04-23] MEDS: Rivaroxaban 10 MG TAB PO SCH (21:35)
[2021-04-24] MEDS ORDERED: Metoprolol Tartrate 5 MG/5 ML VIAL IVP SCH (01:00)
[2021-04-24] MEDS: Albuterol 200 PUFF (6.7GM INHALER) INH SCH ×6 (02:00→21:14)
[2021-04-24 05:38] LABS: #Lymphocytes 0.4 thou/uL (1.20-3.40); #Monocytes 0.7 thou/uL (0.11-0.59); #Neutrophils 12.9 thou/uL (1.40-6.50); %Basophils 0.3 % (0.0-1.0); %Eosinophils 0.1 % (0.0-10.0); %Lymphocytes 3.1 % (21.0-51.0); %Monocytes 4.6 % (0.0-10.0); Hemoglobin 16.1 g/dL (14.0-18.0); Mean Corpuscular HGB CONC 32.5 g/dL (32.0-36.0); Mean Corpuscular Hemoglobin 30.9 pg (27.0-31.0); Mean Corpuscular Volume 95.1 fL (78.0-98.0); Mean Platelet Volume 7.8 fL (7.4-10.4); Platelet Count 243 thou/uL (130-400); RBC Distribution Width 14.1 % (11.5-14.5); White Blood Cell (WBC) Count 14.1 thou/uL (4.8-10.8)
[2021-04-24 06:06] LABS: ALT (SGPT) 51 U/L (8-55); AST (SGOT) 33 U/L (5-34); Alkaline Phosphatase 142 U/L (40-110); Anion Gap 14 mmol/L (10-20); BUN (Urea Nitrogen) 37 mg/dL (8.4-25.7); Bilirubin, Total 1.4 mg/dL (0.2-1.2); Calc. Creatinine Clearance 60 mL/min (70-130); Carbon Dioxide 30 mmol/L (23-31); Chloride 94 mmol/L (98-107); Globulin 3.7 g/dL (2.4-3.5); Glucose 139 mg/dL (83-110); Potassium 4.6 mmol/L (3.5-5.1); Protein, Total 6.7 g/dL (5.8-8.1); Sodium 133 mmol/L (136-145)
[2021-04-24] MEDS: Levothyroxine Sodium 88 MCG TAB PO SCH (06:21)
[2021-04-24] MEDS: Metoprolol Tartrate 50 MG TAB PO SCH ×2 (06:21→20:28)
[2021-04-24] MEDS: Mometasone 200 MCG/PUFF (1 INHALER) INH SCH ×2 (06:28→18:29)
[2021-04-24] MEDS: Ipratropium Oral Inhaler INH SCH ×4 (06:29→18:31)
[2021-04-24] MEDS: Mometasone 100 MCG/Formoterol 5 MCG 120 PUFF INHALER INH SCH ×2 (06:29→18:30)
[2021-04-24] MEDS: Potassium Bicarbonate/Cit Ac 20 MEQ TAB PO SCH (08:38)
[2021-04-24] MEDS: guaiFENesin/DM ER PO SCH ×2 (08:40→20:27)
[2021-04-24] MEDS: Furosemide 20 MG/2 ML VIAL SLOW IVP SCH ×2 (08:41→20:26)
[2021-04-24] MEDS: Dexamethasone 10 MG/ML VIAL SLOW IVP SCH ×2 (08:41→20:26)
[2021-04-24] MEDS: Lactated Ringer's 1,000 ML IV SCH (11:19)
[2021-04-24] MEDS ORDERED: Polyethylene Glycol 3350 17 GM Packet PO PRN (13:10)
[2021-04-24] MEDS: Rivaroxaban 10 MG TAB PO SCH (20:26)
[2021-04-24] MEDS: traZODone HCl 50 MG TAB PO SCH (20:35)
[2021-04-25] MEDS: Lactated Ringer's 1,000 ML IV SCH (02:09)
[2021-04-25] MEDS: Albuterol 200 PUFF (6.7GM INHALER) INH SCH ×6 (02:12→21:42)
[2021-04-25 05:36] LABS: #Lymphocytes 0.4 thou/uL (1.20-3.40); #Monocytes 0.9 thou/uL (0.11-0.59); #Neutrophils 9.9 thou/uL (1.40-6.50); %Eosinophils 0.1 % (0.0-10.0); %Lymphocytes 3.3 % (21.0-51.0); %Monocytes 8.1 % (0.0-10.0); %Neutrophils 88.5 % (42.0-75.0); Hemoglobin 14.8 g/dL (14.0-18.0); Mean Corpuscular Hemoglobin 30.4 pg (27.0-31.0); Mean Corpuscular Volume 94.9 fL (78.0-98.0); Platelet Count 240 thou/uL (130-400); RBC Distribution Width 13.9 % (11.5-14.5); Red Blood Cell (RBC) Count 4.88 mill/uL (4.70-6.10); White Blood Cell (WBC) Count 11.2 thou/uL (4.8-10.8)
[2021-04-25 05:57] LABS: ALT (SGPT) 40 U/L (8-55); AST (SGOT) 26 U/L (5-34); Albumin 2.8 g/dL (3.4-4.8); Alkaline Phosphatase 124 U/L (40-110); Anion Gap 16 mmol/L (10-20); BUN (Urea Nitrogen) 43 mg/dL (8.4-25.7); Bilirubin, Total 1.1 mg/dL (0.2-1.2); Calc. Creatinine Clearance 66 mL/min (70-130); Calcium 8.6 mg/dL (7.8-10.44); Carbon Dioxide 28 mmol/L (23-31); Chloride 94 mmol/L (98-107); Globulin 3.5 g/dL (2.4-3.5); Glucose 125 mg/dL (83-110); Potassium 4.2 mmol/L (3.5-5.1); Protein, Total 6.3 g/dL (5.8-8.1); Sodium 134 mmol/L (136-145)
[2021-04-25] MEDS: Levothyroxine Sodium 88 MCG TAB PO SCH (06:03)
[2021-04-25] MEDS: Mometasone 200 MCG/PUFF (1 INHALER) INH SCH ×2 (06:06→18:28)
[2021-04-25] MEDS: Ipratropium Oral Inhaler INH SCH ×4 (06:07→18:29)
[2021-04-25] MEDS: Mometasone 100 MCG/Formoterol 5 MCG 120 PUFF INHALER INH SCH ×2 (06:07→18:28)
[2021-04-25] MEDS: Furosemide 20 MG/2 ML VIAL SLOW IVP SCH ×2 (08:49→21:41)
[2021-04-25] MEDS: Dexamethasone 10 MG/ML VIAL SLOW IVP SCH ×2 (08:49→21:40)
[2021-04-25] MEDS: guaiFENesin/DM ER PO SCH ×2 (08:49→21:40)
[2021-04-25] MEDS: Metoprolol Tartrate 50 MG TAB PO SCH (08:49)
[2021-04-25] MEDS: Potassium Bicarbonate/Cit Ac 20 MEQ TAB PO SCH (08:49)
[2021-04-25] MEDS: Rivaroxaban 10 MG TAB PO SCH (21:40)
[2021-04-25] MEDS: traZODone HCl 50 MG TAB PO SCH (21:40)
[2021-04-25] MEDS: Metoprolol Tartrate 100 MG TAB PO SCH (21:41)
[2021-04-26] MEDS: Albuterol 200 PUFF (6.7GM INHALER) INH SCH ×6 (02:41→22:00)
[2021-04-26 04:50] LABS: #Lymphocytes 0.4 thou/uL (1.20-3.40); #Monocytes 0.9 thou/uL (0.11-0.59); #Neutrophils 12.2 thou/uL (1.40-6.50); %Basophils 0.1 % (0.0-1.0); %Eosinophils 0.1 % (0.0-10.0); %Monocytes 6.7 % (0.0-10.0); %Neutrophils 90.1 % (42.0-75.0); Hemoglobin 15.1 g/dL (14.0-18.0); Mean Corpuscular Hemoglobin 30.5 pg (27.0-31.0); Mean Corpuscular Volume 95.2 fL (78.0-98.0); Mean Platelet Volume 8.1 fL (7.4-10.4); Platelet Count 250 thou/uL (130-400); Red Blood Cell (RBC) Count 4.96 mill/uL (4.70-6.10); White Blood Cell (WBC) Count 13.5 thou/uL (4.8-10.8)
[2021-04-26 05:14] LABS: Anion Gap 19 mmol/L (10-20); BUN (Urea Nitrogen) 52 mg/dL (8.4-25.7); Calc. Creatinine Clearance 60 mL/min (70-130); Carbon Dioxide 27 mmol/L (23-31); Chloride 92 mmol/L (98-107); Glucose 124 mg/dL (83-110); Potassium 4.6 mmol/L (3.5-5.1); Sodium 133 mmol/L (136-145)
[2021-04-26] MEDS: Ipratropium Oral Inhaler INH SCH ×4 (05:47→18:35)
[2021-04-26] MEDS: Mometasone 100 MCG/Formoterol 5 MCG 120 PUFF INHALER INH SCH ×2 (05:49→18:34)
[2021-04-26] MEDS: Mometasone 200 MCG/PUFF (1 INHALER) INH SCH ×2 (05:50→18:37)
[2021-04-26] MEDS: Levothyroxine Sodium 88 MCG TAB PO SCH (05:52)
[2021-04-26] MEDS: Potassium Bicarbonate/Cit Ac 20 MEQ TAB PO SCH (09:00)
[2021-04-26] MEDS: Dexamethasone 10 MG/ML VIAL SLOW IVP SCH ×2 (09:01→20:14)
[2021-04-26] MEDS: guaiFENesin/DM ER PO SCH ×2 (09:01→20:14)
[2021-04-26] MEDS: Furosemide 20 MG/2 ML VIAL SLOW IVP SCH ×2 (09:01→20:14)
[2021-04-26] MEDS: Metoprolol Tartrate 100 MG TAB PO SCH ×2 (09:01→20:14)
[2021-04-26] MEDS: Rivaroxaban 10 MG TAB PO SCH (20:15)
[2021-04-26] MEDS: traZODone HCl 50 MG TAB PO SCH (20:15)
[2021-04-27 00:35] VITALS: BP 123/70; TEMP 97.9
== END 2021-04-27 06:50 | disposition expired | DRG 871 ==
LOC: ERS 13:48 → ERHOLD 15:09 → IMCU/EMU 20:58 → 2SE 04-18 09:56 → 2SW 04-18 18:31
PROVIDERS: ADMIT Student in an Organized Health Care Education/Training Program; ATTEND Student in an Organized Health Care Education/Training Program
PROC: 8E0ZXY6 Isolation (ICD-10-PCS; principal; 2021-04-13)
DX: A41.89 Other specified sepsis (principal); J96.01 Acute respiratory failure with hypoxia; U07.1 COVID-19; J12.82 Pneumonia due to coronavirus disease 2019; I21.A1 Myocardial infarction type 2; R65.21 Severe sepsis with septic shock; J44.1 Chronic obstructive pulmonary disease with (acute) exacerbation; J98.11 Atelectasis; J44.0 Chronic obstructive pulmonary disease with (acute) lower respiratory infection; N17.9 Acute kidney failure, unspecified; I13.0 Hypertensive heart and chronic kidney disease with heart failure and stage 1 through stage 4 chronic kidney disease, or unspecified chronic kidney disease; Z66 Do not resuscitate; I48.91 Unspecified atrial fibrillation; K74.60 Unspecified cirrhosis of liver; I25.10 Atherosclerotic heart disease of native coronary artery without angina pectoris; M19.90 Unspecified osteoarthritis, unspecified site; C61 Malignant neoplasm of prostate; F32.A Depression, unspecified; G47.00 Insomnia, unspecified; I73.9 Peripheral vascular disease, unspecified; Z96.643 Presence of artificial hip joint, bilateral; Z96.652 Presence of left artificial knee joint; K58.9 Irritable bowel syndrome, unspecified; N18.9 Chronic kidney disease, unspecified; M81.0 Age-related osteoporosis without current pathological fracture; F43.10 Post-traumatic stress disorder, unspecified; Z79.82 Long term (current) use of aspirin; Z98.890 Other specified postprocedural states; Z88.0 Allergy status to penicillin; Z88.8 Allergy status to other drugs, medicaments and biological substances; Z88.6 Allergy status to analgesic agent; Z79.51 Long term (current) use of inhaled steroids; Z79.01 Long term (current) use of anticoagulants; Z79.899 Other long term (current) drug therapy; Z87.891 Personal history of nicotine dependence; Z98.1 Arthrodesis status; Z90.49 Acquired absence of other specified parts of digestive tract; Z98.42 Cataract extraction status, left eye; Z98.41 Cataract extraction status, right eye; Z95.0 Presence of cardiac pacemaker; Z86.718 Personal history of other venous thrombosis and embolism; I50.9 Heart failure, unspecified; E86.0 Dehydration
CPT/HCPCS: 36415; 36600; 71045; 71046; 71275; 76700; 80048; 80053; 80061; 80074; 82553; 82805; 83605; 83735; 83880; 84100; 84145; 85025; 93005; 93010; 94664; 94760; C9113; J0696; J1100; J1940; J3490; J7120; Q9967; U0002